=== PATIENT | female | born 2000 | race Caucasian/White ===

== ENCOUNTER 2024-04-28 11:53 | Outpatient (OUT) | payer BC, OTHER, SELFPAY ==
--- NOTE | 2024-04-28 | XR_ITS ---
[address] [address] Patient Name: NAVI FOX MRN: [id number] date: 2000 Sex: F Assigned Patient Location: Current Patient Location: Accession/Order Number: [id number] Exam Date: 04/28/2024 11:54 Report Date: 04/30/2024 04:48 At the request of: VLAD REYES Procedure: XR ankle MELINA min 3V EXAMINATION: XR foot MELINA min 3V, XR ankle MELINA min 3V HISTORY: BILATERAL FOOT PAIN COMPARISON: No relevant comparison available. FINDINGS: RIGHT FINDINGS: BONES: Mild valgus deformity at the ankle joint. Moderate flattening of plantar arch. No fracture, dislocation, or significant degenerative joint disease. SOFT TISSUES: No visible soft tissue swelling. OTHER: Negative. LEFT FINDINGS: BONES: Mild valgus deformity at the ankle joint. Moderate flattening of the plantar arch. No fracture, dislocation, or significant degenerative joint disease. SOFT TISSUES: No visible soft tissue swelling. OTHER: Negative. XR/XR ankle MELINA min 3V IMPRESSION: RIGHT CONCLUSION: Moderate pes planus and mild valgus deformity. LEFT CONCLUSION: Moderate pes planus and mild valgus deformity. Electronically authenticated by: CHUCKY OLIVAREZ Date: 04/30/2024 04:48
--- NOTE | 2024-04-28 | XR_ITS ---
[address] [address] Patient Name: NAVI FOX MRN: [id number] date: 2000 Sex: F Assigned Patient Location: Current Patient Location: Accession/Order Number: [id number] Exam Date: 04/28/2024 11:54 Report Date: 04/30/2024 04:48 At the request of: VLAD REYES Procedure: XR foot MELINA min 3V EXAMINATION: XR foot MELINA min 3V, XR ankle MELINA min 3V HISTORY: BILATERAL FOOT PAIN COMPARISON: No relevant comparison available. FINDINGS: RIGHT FINDINGS: BONES: Mild valgus deformity at the ankle joint. Moderate flattening of plantar arch. No fracture, dislocation, or significant degenerative joint disease. SOFT TISSUES: No visible soft tissue swelling. OTHER: Negative. LEFT FINDINGS: BONES: Mild valgus deformity at the ankle joint. Moderate flattening of the plantar arch. No fracture, dislocation, or significant degenerative joint disease. SOFT TISSUES: No visible soft tissue swelling. OTHER: Negative. XR/XR foot MELINA min 3V IMPRESSION: RIGHT CONCLUSION: Moderate pes planus and mild valgus deformity. LEFT CONCLUSION: Moderate pes planus and mild valgus deformity. Electronically authenticated by: CHUCKY OLIVAREZ Date: 04/30/2024 04:48
== END 2024-04-28 11:54 | disposition home or self-care (01) ==
LOC: EC 11:54
PROVIDERS: Visit Provider Podiatrist Foot & Ankle Surgery
DX: M25.571 Pain in right ankle and joints of right foot (principal); M25.572 Pain in left ankle and joints of left foot; M21.42 Flat foot [pes planus] (acquired), left foot; M21.41 Flat foot [pes planus] (acquired), right foot; M21.072 Valgus deformity, not elsewhere classified, left ankle; M21.071 Valgus deformity, not elsewhere classified, right ankle
CPT/HCPCS: 73610; 73630